=== PATIENT | female | born 1955 | race Caucasian/White ===

== ENCOUNTER 2017-10-05 07:24 | Day surgery (SDC) | payer MEDICARE, MEDICAID ==
--- NOTE | 2017-10-05 06:23 | History and Physical Report ---
DATE: 10/04/2017. CHIEF COMPLAINT AND HISTORY OF CHIEF COMPLAINT: This patient presents with a history of lumbar radiculitis. The diagnostic studies do show a 5-1 disc with multilevel spondylosis. A spinal cord stimulator trial on 09/15/2017 provided 75 to 85 percent pain control. Due to the failure of all therapy and the success of the trial, she presents today for implantation of a permanent system. PAST MEDICAL HISTORY: Chronic headaches, chronic renal disease, diffuse spondylosis. PAST SURGICAL HISTORY: Multiple arthroscopic knee surgeries. EMPLOYMENT STATUS: Currently off work. MEDICATIONS ON ADMISSION: List to be provided. ALLERGIES: None identified. REVIEW OF SYSTEMS: The patient seems appropriate and in no acute distress. The remainder of the systems review shows difficulty sleeping, chronic back pain. SOCIAL HISTORY: Noncontributory. FAMILY HISTORY: Thyroid disease, asthma, diabetes, coronary artery disease, hypertension, cancer. PHYSICAL EXAMINATION: General: Height and weight are not available. Vital Signs: Not available. HEENT: Within normal limits. Lungs: Clear. Heart: Regular rate and rhythm. Abdomen: Nontender. Musculoskeletal: Examination of the musculoskeletal system shows diffuse tenderness in the lumbar spine. Range of motion does produce primary pain moving down both legs, right greater than left. Sensory field evaluation shows no obvious deficits, although the pain pattern appears to be following an L4 and L5 distribution. Motor functionality is intact. Ambulation: No assistive device utilized. Neurologic: Cranial nerves are intact. IMPRESSION: LUMBAR RADICULOPATHY, ICD-10 CODE M54.16 AND M54.17. PLAN: This patient is here for implanted spinal cord stimulator after a successful trial and the failure of all other therapies. The potential risks, side effects, and complications have all been carefully reviewed and discussed. Information provided by the manufacturer agent also identifying and describing the procedure, its risks, side effects, and complications has been provided, reviewed, and discussed. All questions have been answered. The patient understands and has consented. We will consider the procedure outpatient; although an overnight stay will be evaluated. JOB NUMBER: [id number] cc: David Parker
[~2017-10-05 07:24] MED LIST: ACETAMINOPHEN 1,000 MG/100 ML BTL IV ONE; CEFAZOLIN 2 Gram 2 GM/50 ML BAG IVPB ONE; FAMOTIDINE 20MG TABLET PO ONE; MECLIZINE 25 MG TABLET PO ONE; METOCLOPRAMIDE 10 MG TABLET PO ONE
[2017-10-05] MEDS ORDERED: CEFAZOLIN 1G VIAL IM ONE (07:25)
[2017-10-05] MEDS ORDERED: LIDOCAINE 2% MDV (20MG/ML) 20ML VIAL IV ONE (07:25)
[2017-10-05] MEDS ORDERED: PROPOFOL 10 MG/ML VIAL IV ONE (07:25)
[2017-10-05] MEDS ORDERED: LIDOCAINE 1% W/EPI 1:200,000 MPF 30ML SQ ONE (07:25)
[2017-10-05] MEDS ORDERED: FENTANYL PF 100MCG/2ML VIAL IV ONE (07:25)
[2017-10-05] MEDS ORDERED: *PACU ONLY* KETAMINE HCL 10 MG/ML (20ML) VIAL IV ONE (07:25)
[2017-10-05] MEDS ORDERED: BUPIVACAINE 0.5% W/EPI MPF 30 ML VIAL IVP ONE (07:25)
[2017-10-05] MEDS ORDERED: MIDAZOLAM HCL 2MG/2ML VIAL IV ONE (07:25)
[2017-10-05] MEDS ORDERED: AL HYDROX/MAG HYDROX 30ML UD PO PRN (10:47)
[2017-10-05] MEDS ORDERED: DIPHENHYDRAMINE HCL IV 50 MG/ML VIAL IVP PRN ×2 (10:47)
[2017-10-05] MEDS ORDERED: SENNOSIDES/DOCUSATE SODIUM UD CAPSULE PO PRN ×2 (10:47)
[2017-10-05] MEDS ORDERED: METOCLOPRAMIDE HCL 10 MG/2 ML VIAL IVP PRN (10:47)
[2017-10-05] MEDS ORDERED: METOCLOPRAMIDE 10 MG TABLET PO PRN (10:47)
[2017-10-05] MEDS ORDERED: ACETAMINOPHEN 325 MG TAB PO PRN ×2 (10:47)
[2017-10-05] MEDS ORDERED: DIPHENHYDRAMINE HCL 25 MG CAPSULE PO PRN ×2 (10:47)
[2017-10-05] MEDS ORDERED: OXYCODONE/APAP 10MG-325MG TABLET PO PRN ×2 (10:47)
[2017-10-05] MEDS ORDERED: HYDROCODONE/APAP 7.5/325MG TABLET PO PRN ×2 (10:47)
[2017-10-05] MEDS ORDERED: HYDROMORPHONE HCL 1 MG/ML SYRINGE IM PRN (10:47)
[2017-10-05] MEDS ORDERED: HYDROMORPHONE HCL 2 MG/ML VIAL IM PRN (10:47)
[2017-10-05] MEDS ORDERED: TEMAZEPAM 15 MG CAPSULE PO PRN ×2 (10:47)
[2017-10-05] MEDS ORDERED: MECLIZINE 25 MG TABLET PO PRN (10:49)
--- NOTE | 2017-10-05 16:06 | Operative Note - [place] ---
DATE OF SURGERY: 10/05/17 PREOPERATIVE DIAGNOSIS: INTRACTABLE LUMBAR RADICULITIS, ICD-10 CODE = M54.16 AND M54.17. OPERATION: 1. FLUOROSCOPICALLY-GUIDED LEFT EPIDURAL ACCESS T12-L1 PLACEMENT OF SPINAL CORD STIMULATOR LEAD 1, A [employer] 16 WITH 16 ELECTRODES POSITIONED LEFT T7. 2. FLUOROSCOPICALLY-GUIDED EPIDURAL ACCESS LEFT T11-12 PLACEMENT OF SPINAL CORD STIMULATOR LEAD 2, A [employer] 16 WITH 16 ELECTRODES POSITIONED RIGHT T7. 3. COMPLEX PROGRAMMING LEAD 1, 20 MINUTES FOLLOWED BY COMPLEX PROGRAMMING LEAD 2 OVER 20 MINUTES. 4. INCISION, SUBCUTANEOUS DISSECTION, AND ANCHORING OF LEAD 1 AND LEAD 2 TO SUPRASPINOUS FASCIA WITH A [employer] LOCK[employer] ANCHOR AND NONABSORBABLE SUTURE. 5. INCISION, SUBCUTANEOUS DISSECTION, AND CREATION OF A SUBCUTANEOUS POUCH AT LEFT POSTERIOR/SUPERIOR GLUTEAL MARGIN FOR PLACEMENT OF GENERATOR IDENTIFIED [employer] PROGRAMMABLE RECHARGEABLE. 6. TUNNELING BETWEEN POUCHES, PLACEMENT OF EXTERNAL PORTION OF LEAD 1 AND LEAD 2 INTO GENERATOR POUCH, EACH LEAD INTERFACED TO GENERATOR. 7. PLACEMENT OF LEADS INTO POUCH. PLACEMENT OF GENERATOR INTO POUCH. GENERATOR IS SECURED TO POSTERIOR FASCIA WITH NONABSORBABLE SUTURE AND CLOSURE OF INCISIONS VICRYL FOR FASCIA AND RUNNING SUBCUTICULAR VICRYL FOR SKIN. DERMABOND CLOSURE. 8. COMPLEX RECOVERY ROOM PROGRAMMING INTERNAL GENERATOR HOME USE, TWO STIMULATORS, RECOVERY ROOM, 20 MINUTES. SURGEON: MARYAN VITAL D.O. ANESTHESIA: LOCAL SEDATION. ANESTHESIA PROVIDER: SHANNAN NIETO CRNA. INDICATION: This patient with a history of a intractable lumbar radiculitis and due to the failure of all therapy, had a spinal cord stimulator trial conducted in the office with 75-90% pain control. Due to the failure of all therapy and the success of the trial, she presents today for implantation of a permanent system. PROCEDURE: Intravenous line, vital sign monitoring, IV sedation, prepped, draped sterile technique. Under imaging, the epidural interspace from the left at T11-12 and 12-1 infiltrated then with the use of two standard epidural needles with [id number], the epidural space was accessed. At 08/22, spinal cord stimulator lead 1, a [place] [employer]ion 16 with 16 electrodes positioned left at T7. With the epidural access at 11-12, spinal cord stimulator lead 2, a [place] [employer] 16 with 16 electrodes positioned right at T7. Complex programming of lead 1 over 20 minutes followed by complex programming of lead 2 over 20 minutes resulting in complete patterns of stimulation across the back and into the legs. Patient indicating we had all of the areas of the pain. She was given the option to implant, continue to program, or remove; she opted to implant. Questions repeated with the same response. The skin above and below both needles were infiltrated, incision made , and subcutaneous dissection was conducted to the supraspinous fascia. Each lead was then anchored to the supraspinous fascia with a [place] [employer] [place] and nonabsorbable suture. At the left posterior gluteal margin, a site picked by the patient for the generator, skin infiltrated, incision made and subcutaneous dissection was conducted to form a pouch of suitable size and depth for the generator; a [place] [employer] Programmable Rechargeable. A tunneling tool was used to carry the leads into the generator pouch and then each lead was interfaced to the generator. Antibiotic irrigation and Bovie for hemostasis at both sites. The generator was placed into the pouch and secured to the posterior fascia with a nonabsorbable suture. Both leads in the pouch then both incisions were closed Vicryl for fascia and running subcuticular Vicryl for skin. Dermabond closure approximating the edges of both incisions. She was then transported to the Recovery Room stable showing no side-effects from the procedure or the sedation. When fully awake and alert, complex programming was then performed of the leads re-establishing stimulation and pain control to all of the appropriate areas. The patient was requesting to go home. DISCHARGE INSTRUCTIONS: 1. She sites to remain clean and dry although she may shower in 24 hours. No bathing or immersing the wounds in water. 2. Standard medications resumed. A script for [place] 10/325, five a day for 10 days has been provided for incisional pain. All other medications were resumed. 3. She will be seen in the office in 7-10 days to evaluate the sites. Until then , she is to keep her activities low. Limit bend, lift, push, pull, and all activities until she is evaluated. All other information provided, numbers to contact, problems given. She will then be prepared for discharge. cc: Dr. Brooks Andino JOB NUMBER: [id number] [facility]
[2017-10-05] MEDS ORDERED: CEFAZOLIN 2 Gram 2 GM/50 ML BAG IVPB SCH (16:20)
[2017-10-05] MEDS ORDERED: 0.9 % SODIUM CHLORIDE 10ML SYR IVP SCH (22:00)
[2017-10-06] MEDS ORDERED: HYDROCHLOROTHIAZIDE 12.5 MG CAPSULE PO SCH (10:00)
--- NOTE | 2017-10-06 14:15 | RADIOLOGY REPORT ---
EXAM: THORACOLUMBAR SPINE, ONE VIEW HISTORY: SPINAL CANAL STIMULATOR IMPLANT. TECHNIQUE: A single AP portable supine view of the spine was obtained including the lower two-thirds of the thoracic spine and the entire lumbar spine. Comparison: Same day intraoperative radiographs of the spine. FINDINGS: There is mild osteopenia. There is mild S-shaped thoracolumbar scoliosis with the dextrocurvature of the thoracic spine centered at the T10- T11 level and the levocurvature of the lumbar spine centered at the L4 level. No acute fracture is seen. No destructive bone lesion. Multilevel degenerative changes within the spine most pronounced at the lower lumbar levels where they are moderate in degree. A dual lead interspinal stimulator is in place. The leads likely enter the spinal canal near the L1 level. The lead tips project at the superior T7 level. The leads are connected to a stimulator generator which projects in the left superior gluteal region. Several calcific densities project at the level of the right mid abdomen with nephrolithiasis not excluded. IMPRESSION: DUAL LEAD INTERSPINAL STIMULATOR IN PLACE, DISCUSSED ABOVE. [facility]BER: [id number] [facility]
== END 2017-10-05 14:30 | disposition home or self-care (01) ==
LOC: SUR 07:24 → MEDSURG 10:52 → SUR 14:30
PROVIDERS: ATTEND Pain Medicine Interventional Pain Medicine
DX: M54.16 Radiculopathy, lumbar region (principal); M54.17 Radiculopathy, lumbosacral region; N28.9 Disorder of kidney and ureter, unspecified
CPT/HCPCS: 63685; 63650 ×2; 00300; 95972; 72020; J3010; J0690; C1820; C1883